=== PATIENT | female | born 2000 | race Two or more races ===

== ENCOUNTER 2025-08-23 07:22 | Emergency (ER) | payer MEDICAID, SELFPAY ==
[2025-08-23 07:33] VITALS: BP 132/82; PULSE 84; RESP 18; TEMP 37.3; O2SAT 98; BMI 29.9
--- NOTE | 2025-08-23 08:00 | PD.EDEXREM ---
ED Extremity Problem RME/HPI General Chief complaint: Extremity Problem,Nontraumatic Stated complaint: Right arm when she goes to sleep Time Seen by Provider: 08/23/25 07:28 Arrival date/time: 08/23/25 07:22 This is a 25-year-old female that comes into the emergency room with complaints of right shoulder pain has been going on for weeks. Patient states the pain radiates down her arm. Patient denies trauma. Patient denies any fall. She reports that she picks fruit from living and thinks she might of injured it there. Patient states that pain sometimes does not let her sleep it is sharp to her right shoulder. Patient denies any other complaints. Patient does not know she is . Patient denies any fever, nausea, vomiting, diarrhea. Patient denies any respiratory symptoms. Patient denies any swelling to her arm and no erythema. Related Data Previous Rx's ?Medication ?Instructions ?Recorded baclofen 10 mg tablet 10 mg PO .qhs PRN muscle spasm #20 08/23/25 tabs ibuprofen 800 mg tablet 800 mg PO Q6H PRN pain #20 tabs 08/23/25 Allergies Allergy/AdvReac Type Severity Reaction Status Date / Time No Known Drug Allergies Allergy Verified 08/23/25 07:27 Review of Systems Review of Systems Systems Reviewed: All systems reviewed, normal except as documented Past Medical History Past Medical History Comments PMH COMMENT: Denies ED Exam Narrative Physical exam: VITAL SIGNS: Reviewed. GENERAL APPEARANCE: Alert and interactive, follows commands, no acute distress HEAD AND FACE: Non-traumatic. ENT: PERRL, conjuctiva pink and clear, eyelid no trauma, Mucous membrane moist. NECK: Supple, nontender, no nuchal rigidity. CHEST: No tenderness, no crepitus, no paradoxical movement, no retractions. LUNGS: breathing even and unlabored HEART: Regular rate, cap refill less than 2 seconds ABDOMEN: Soft, nondistended NEUROLOGICAL: Gross motor function intact sensory function intact, Appropriate for age. MUSCULOSKELETAL: low back nontender, full range of motion. no midline tenderness, no meningismus, no step offs EXTREMITIES: No redness no swelling no skin breakdown on bilateral foot and leg. Distal neurovascular status intact bilateral foot, mild pain to palpation to top of shoulder joint no swelling noted no erythema. Patient has pain with forward flexion I can go about 90 degrees but has a hard time lifting her arm over her head. Patient also has pain with shoulder extension and shoulder abduction shoulder abduction patient can only go about 90 degrees but not higher. SKIN: Color pink, dry, no rash, no lacerations, no abrasions, no contusions. Course Quality Measures none Orders Category Date Time Status HCG Qualitative,Urine Stat Lab 08/23/25 08:30 Completed HYDROcodone*/APAP 5/325 [[place] 5/325] Med 08/23/25 09:58 Discontinued 1 tab PO X1 ONE Ketorolac Inj [Toradol Inj] Med 08/23/25 09:58 Discontinued 60 mg IM X1 ONE Metoclopramide [Reglan] Med 08/23/25 09:58 Discontinued 10 mg PO X1 ONE Vital Signs Vital signs: Vital Signs Temperature 99.1 F 08/23/25 07:33 Pulse Rate 84 08/23/25 07:33 Respiratory Rate 18 08/23/25 07:33 Blood Pressure 132/82 H 08/23/25 07:33 Pulse Oximetry (%) 98 08/23/25 07:33 Oxygen Delivery Method Room Air 08/23/25 07:33 Extremity Problem MDM Narrative MDM Narrative:: I spoke to patient at length. Patient has no history of trauma or fall. Patient has no swelling or erythema to her shoulder to her elbow area. It is likely that patient can have an impingement or a possible tear. I explained to patient at length that I can do an x-ray of her shoulder but I do not think it is fara actually show anything because there is been no trauma to the shoulder. Patient does not want an x-ray of her shoulder. I explained typically the treatment for possible impingement is rest ice anti-inflammatories obviously avoiding aggravating activities and focusing on strengthening the area. I also explained to patient that she may benefit from physical therapy. I did tell patient she will need to follow-up with her primary provider and she may need further testing such as an MRI to identify patient tear. I will prescribe patient a muscle relaxant along with NSAIDs. Patient verbalized understanding and feels comfortable plan of care. Will do an hCG urine first as patient does not know if she is or not. Patient was found to not be . Patient told to follow-up with primary provider in 1 to 2 days. [place] to emergency room symptoms change or worsen. Dragon dictation: Although this document has been carefully reviewed, there may still be some phonetic and other typographical errors. These errors are purely grammatical due to imperfections in the software program and should not be construed in any way to compromise the substance of the patient's medical care during this visit. Patient data External records reviewed:: [facility] previous records Clinical information provided by:: patient Social determinants that could affect healthcare access:: none Patient has the following chronic illnesses:: none How is presenting disease/condition affected by chronic disease/condition?: no chronic disease Evaluation data The following diagnostics were reviewed and interpreted by me:: other (specify) (see note ) Lab and/or radiology exams considered but not ordered:: none Interpretation Summary: see note Medications / Prescriptions Medications or Prescriptions considered but not ordered:: none Medication administrations:: Medication Administration History Discontinued Medications Hydrocodone Bitart/Acetaminophen (Hydrocodone/[place] 5/325 Tablet) 1 tab PO X1 ONE Stop: 08/23/25 09:59 Last Admin: 08/23/25 10:05 Dose: 1 tab Documented By: OTF Ketorolac Tromethamine (Ketorolac Inj 60 Mg/2 Ml Vial) 60 mg IM X1 ONE Stop: 08/23/25 09:59 Last Admin: 08/23/25 10:06 Dose: 60 mg Documented By: OTF Metoclopramide HCl (Metoclopramide 5 Mg Tablet) 10 mg PO X1 ONE Stop: 08/23/25 09:59 Last Admin: 08/23/25 10:05 Dose: 10 mg Documented By: OTF see [facility] Consultations Consultation(s) initiated? (list below): No Diagnosis Most likely diagnosis given after review of the tests above:: see note Admission Indicated Admission indicated?: not indicated Admission Request Was there a request for admission?: No Disposition Plan Disposition Plan: Discharge Discharge Attestation Discharge Attestation: The patient and all family members were given an opportunity to ask questions and understood the discharge instructions. Discharge instructions specifically effects, indications for sooner follow up or return to the emergency department, and the expected course of current diagnosis. Patient condition: Stable Discharge Plan Plan Patient Disposition: HOME (Self Care) Patient condition on transfer: Stable Prescriptions/Referrals Prescriptions/Med Rec: New baclofen 10 mg tablet 10 mg PO .qhs PRN (Reason: muscle spasm) Qty: 20 0RF ibuprofen 800 mg tablet 800 mg PO Q6H PRN (Reason: pain) Qty: 20 0RF Referrals: Crissy Gibson PA-C [Primary Care Provider] - In 1 week Problem List Clinical Impression: Acute shoulder pain, Arm pain Patient/Caregiver Discharge Instructions Discharge Activity: activity as tolerated Education Materials: ED RICE Additional Instructions: Please follow-up with your primary provider in 1 to 2 days. May need further testing for shoulder pain or may need physical therapy referral. Come back to the emergency room symptoms change or worsen. Print Language: Portuguese Stand Alone Forms: Nataliia Award Info., Patient Portal Info Letter PA/GUSTABO Supervising Physician DEONTE Supervising Physician: madai
[2025-08-23 09:31] LABS: HCG Qualitative,Urine Negative
[2025-08-23] MEDS: HYDROcodone/APAP 5/325 TABLET 1 TAB PO (10:05)
[2025-08-23] MEDS: METOCLOPRAMIDE 5 MG TABLET 10 MG PO (10:05)
[2025-08-23] MEDS: KETOROLAC INJ 60 MG/2 ML VIAL IM (10:06)
== END 2025-08-23 10:25 | disposition home or self-care (01) ==
PROVIDERS: Nurse Practitioner Family; Emergency Provider Emergency Medicine; PCP Physician Assistant
DX: M25.511 Pain in right shoulder (principal)
CPT/HCPCS: 81025; 96372; 99282; J1885; A9270